=== PATIENT | female | born 1970 | race Caucasian/White ===

== ENCOUNTER → 2017-05-26 | Outpatient (CLI) | payer BC ==
[~2017-05-26] MED LIST: ALPR1TAB2 PO; IBP800T PO; ISOM1CAP11 PO; SULF1TAB38 PO
--- NOTE | 2017-05-26 09:24 | Diagnostic Imaging Report ---
EXAMINATION: Bilateral diagnostic mammogram with tomography evaluation. The current study was also evaluated with a Computer Aided Detection (CAD) system. COMPARISON: 11/18/2015. INDICATION: Bilateral breast pain. 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 FINDINGS: The breasts are composed of heterogeneously dense parenchyma which may decrease mammographic sensitivity. There are circumscribed masses seen in the left breast which appeared to be present on the previous exam, suggestive of fibroadenomas. Some of the lesions seen on ultrasound are probably obscured by the dense fibroglandular tissue. Benign-appearing calcifications are seen. 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 An ultrasound evaluation is pending. ACR BI-RADS Category 0: Incomplete. (Needs additional imaging evaluation). Result letter will be mailed to the patient. Note: At least 10% of breast cancer is not imaged by mammography. Dictated by: Dictated on workstation # [id number]
--- NOTE | 2017-05-26 09:35 | Diagnostic Imaging Report ---
EXAMINATION: Bilateral breast ultrasound. INDICATION: Breast pain. TECHNIQUE: All four quadrants and the retroareolar region were examined on this study. FINDINGS: The left breast demonstrates multiple masses likely related to fibroadenomas, particularly with the previously biopsy-proven fibroadenoma. The lesions seen in the left breast are as follow: 12 o'clock zone, 2 cm from the nipple measuring 1.7 x 0.9 x 1.7 cm. 1:30 o'clock position, 4 cm from nipple measuring 1.3 cm. 3 o'clock position, 5 cm from the nipple measuring 1.1 cm. 5 o'clock position, 4 cm from nipple measuring 0.9 cm. In the right breast at the 10:30 o'clock position 1 cm from the nipple, a 1 cm similar lesion is seen. All of these lesions have circumscribed margins. No adverse development when compared to 11/18/2015. IMPRESSION: Bilateral multiple circumscribed masses, likely related to fibroadenomas. Followup study in 12 months is recommended to ensure from lumbar stone stability. BI-RADS 3. Dictated by: Dictated on workstation # [id number]
== END ==
LOC: RAD 07:57
PROVIDERS: ATTEND Family Medicine
DX: N63.20 Unspecified lump in the left breast, unspecified quadrant (principal); N63.10 Unspecified lump in the right breast, unspecified quadrant; Z86.018 Personal history of other benign neoplasm
CPT/HCPCS: 77066

== ENCOUNTER → 2021-02-25 | Outpatient (CLI) | payer BC ==
--- NOTE | 2021-02-25 12:35 | Diagnostic Imaging Report ---
Indication: Routine screening. Comparison is made with prior mammogram from 05/24/2017 and 11/05/2015. 2-D and 3-D bilateral screening mammography was performed with CAD. Both breasts are heterogeneously dense, limiting the sensitivity of mammography. Previously noted circumscribed mass left breast actually appears smaller. No new mass is identified. No malignant-appearing microcalcifications are seen. Axillae are unremarkable. IMPRESSION: BI-RADS Category 2 No mammographic features suspicious for malignancy are identified. ACR BI-RADS Category 2: Benign findings. Result letter will be mailed to the patient. Note: At least 10% of breast cancer is not imaged by mammography. Dictated by: Dictated on workstation # [id number]
== END ==
LOC: RAD 08:45
PROVIDERS: ATTEND Family Medicine
DX: Z12.31 Encounter for screening mammogram for malignant neoplasm of breast (principal)
CPT/HCPCS: 77063; 77067

== ENCOUNTER 2021-07-19 18:44 | Emergency (ER) | payer BC ==
[~2021-07-19] VITALS: Ht 170 cm; Wt 82.0 kg
[2021-07-19] MEDS ORDERED: IBUPROFEN 800 MG (MOTRIN) TAB PO STA (19:09)
--- NOTE | 2021-07-19 19:18 | ED Cough/URI ---
General Chief Complaint: COVID19 Suspect/Confirmed Stated Complaint: COVID EXPOSURE BODYACHES Nursing Triage Note: states exposure to covid. complaint of body aches, headache, throat pain. treated with OTC cold medication, tylenol and motrin. symptoms started today History of Present Illness Date Seen by Provider: Jul 19, 2021 Time Seen by Provider: 19:04 Initial Comments 50 year old female presents with cough, body aches, congestion and COVID positive household members. She is not vaccinated and believes COVID is a conspiracy. She is vaccinated for Influenza. Symptoms began this morning. She to ok Tylenol Flu at 1700. Timing/Duration: this morning Severity/Quality: dry cough Prior Episodes/Possible Cause: no prior episodes Modifying Factors: Improves With Rest Associated Symptoms: cough, earache, fever/chills, lightheadedness, muscle aches Allergies and Home Medications Allergies Coded Allergies: Penicillins (Unverified Allergy, Unknown, 02/25/21) azithromycin (Unverified Allergy, Unknown, 02/25/21) Patient Home Medication List Home Medication List Reviewed: Yes Alprazolam (Xanax) 1 Mg Tablet, 1 MG PO Q8H PRN for ANXIETY Prescribed by: KATHLEEN EDMOND on 11/23/15 1700 Review of Systems Review of Systems Constitutional: see HPI, fever, malaise EENTM: see HPI, ear pain (bilat) Respiratory: see HPI, cough; No dyspnea on exertion, No short of breath Cardiovascular: no symptoms reported, see HPI Gastrointestinal: no symptoms reported, see HPI All Other Systems Reviewed Negative Unless Noted: Yes Past Vdcolbm-Oiriuk-Gdtsjn Hx Patient Social History Tobacco Use?: No Use of E-Cig and/or Vaping dev: No Substance use?: No Alcohol Use?: No Pt feels they are or have been: No Immunizations Up To Date First/Initial COVID19 Vaccinat: no Second COVID19 Vaccination Hardeep: no Third COVID19 Vaccination Date: no Past Medical History Tubal Ligation Reproductive Disorders: No Sexually Transmitted Disease: No Anxiety Family Medical History Reviewed Nursing Family Hx No Pertinent Family Hx Physical Exam Vital Signs - First Documented 07/19/21 19:04 Temp 37.8 Pulse 99 Resp 20 B/P (MAP) 132/89 (103) Pulse Ox 95 O2 Delivery Room Air Capillary Refill : Less Than 3 Seconds Height: 5'7" Weight: 165lbs. oz. [id number]; 28.00 BMI Method:Stated General Appearance: WD/WN, no apparent distress HEENT: PERRL/EOMI, normal ENT inspection, TMs normal, pharynx normal Neck: non-tender, full range of motion, supple, normal inspection Respiratory: chest non-tender, lungs clear, normal breath sounds Cardiovascular: normal peripheral pulses, regular rate, rhythm Gastrointestinal: normal bowel sounds, non tender, soft Extremities: normal range of motion, non-tender, normal inspection, normal capillary refill Neurologic/Psychiatric: no motor/sensory deficits, alert, normal mood/affect, oriented x 3 Skin: normal color, warm/dry Progress/Results/Core Measures Suspected Sepsis SIRS Temperature: Pulse: 115 Respiratory Rate: 20 Blood Pressure 132 /89 Mean: 103 Results/Orders Lab Results Laboratory Tests Test 07/19/21 19:10 Range/Units Influenza Type A (RT-PCR) Not Detected Not Detecte Influenza Type B (RT-PCR) Not Detected Not Detecte SARS-CoV-2 RNA (RT-PCR) Not Detected Not Detecte My Orders Orders - GIDEON SIEGEL Influenza A And B By Pcr (07/19/21 19:05) Covid 19 Inhouse Test (07/19/21 19:05) Ibuprofen Tablet (Motrin Tablet) (07/19/21 19:09) Vital Signs/I&O 07/19/21 07/19/21 19:04 19:36 Temp 37.8 38.7 Pulse 99 Resp 20 B/P (MAP) 132/89 (103) Pulse Ox 95 O2 Delivery Room Air Capillary Refill : Less Than 3 Seconds Blood Pressure Mean: 103 Departure Impression Primary Impression: Cough Additional Impressions: Fever Qualified Codes: R50.9 - Fever, unspecified Viral URI Disposition: HOME, SELF-CARE Condition: Improved Departure-Patient Inst. Decision time for Depature: 19:40 Referrals: FLORENCE ANGUIANO MD (PCP/Family) Primary Care Physician Patient Instructions: Viral Upper Respiratory Infection, Adult (DC) Add. Discharge Instructions: Increase fluids, 16 ounces every 2 hours while awake. Continue to use the Tylenol cough and cold. Alternating with NyQuil for the evenings. You may alternate between Tylenol 650 mg and ibuprofen 600 mg every 4 hours for fever and generalized discomfort. Take aspirin 81 mg once daily. Take an immune vitamin that has C, D, and zinc. If your symptoms continue, call Dr. Anguiano and he can order repeat tests (outpatient). Follow-up with your primary care provider if your symptoms are not improving or worsen. All discharge instructions reviewed with patient and/or family. Voiced understanding. GIDEON SIEGEL Jul 19, 2021 19:18
[2021-07-19 19:49] VITALS: BP 132/89
== END 2021-07-19 19:49 | disposition home or self-care (01) ==
LOC: EDUNIT# 18:44 → ER 18:45
DX: J06.9 Acute upper respiratory infection, unspecified (principal); F41.9 Anxiety disorder, unspecified; Z20.822 Contact with and (suspected) exposure to COVID-19; Z79.899 Other long term (current) drug therapy
CPT/HCPCS: 87636; 99283